=== PATIENT | female | born 1945 | race Hispanic/Latino ===

== ENCOUNTER → 2017-04-30 | Outpatient (CLI) | payer OTHER ==
[~2017-04-30] MED LIST: ALEN70TA47 PO; LISI1TAB11 PO; METF500T6 PO; METO100T14 PO; METO10TA3 PO; OMEP40CA37 PO; PRAV40TA3 PO
== END | disposition home or self-care (01) ==
LOC: RAH 13:21
PROVIDERS: ATTEND Internal Medicine
DX: R05 Cough (principal); M40.294 Other kyphosis, thoracic region
CPT/HCPCS: 71046

== ENCOUNTER 2018-04-18 02:38 | Observation (INO) | payer OTHER ==
[~2018-04-18] VITALS: Ht 170.2 cm; Wt 79.6 kg
[~2018-04-18 02:38] MED LIST changes: +ALEN70TA10 PO; -ALEN70TA47 PO; +METF-444 PO; -METF500T6 PO
[2018-04-18] MEDS ORDERED: SODIUM CHLORIDE 0.9% 1000ML 1,000 ML IV ONE ×2 (02:59→05:07)
[2018-04-18] MEDS ORDERED: ACETAMINOPHEN EXTRA STRENGTH 500 MG TABLET ONE (02:59)
[2018-04-18] MEDS ORDERED: ONDANSETRON HCL 4 MG/2 ML VIAL ONE (02:59)
[2018-04-18] MEDS ORDERED: FAMOTIDINE/PF 20 MG/2 ML VIAL IV ONE (03:00)
[2018-04-18 03:17] LABS: EOSINOPHILS % (AUTO) 0.8 % (0.0-8.0); HEMATOCRIT 37.2 % (36-48); LYMPHOCYTES % (AUTO) 17.5 % (21.0-51.0); MEAN CORPUSCULAR HEMOGLOBIN 28.3 pg (27.0-33.0); MEAN CORPUSCULAR HGB CONC 33.2 g/dL (32.0-36.0); MONOCYTES % (AUTO) 3.7 % (3.0-13.0); PLATELET COUNT (AUTO) 189 K/uL (130-400); RED BLOOD CELL COUNT(AUTO) 4.37 MIL/uL (4.00-5.50); RED CELL DISTRIBUTION WIDTH 14.3 % (11.0-15.5); WHITE BLOOD COUNT (AUTO) 10.5 K/uL (4.8-10.8)
[2018-04-18 03:33] LABS: CREATININE 1.1 mg/dL (0.5-1.5); INR 0.94 (0.85-1.15); PARTIAL THROMBOPLASTIN TIME 24.1 SEC (26.3-35.5); POTASSIUM 4.3 mmol/L (3.5-5.1); PROTHROMBIN TIME 9.9 SEC (9.6-11.6)
[2018-04-18 03:42] LABS: ALBUMIN 3.6 g/dL (3.5-5.0); BILIRUBIN,TOTAL 1.3 mg/dL (0.2-1.0); TOTAL PROTEIN, SERUM 8.5 g/dL (6.0-8.3)
[2018-04-18 04:04] LABS: APPEARANCE,URINE Clear (CLEAR); BILIRUBIN,URINE Negative (NEGATIVE); COLOR,URINE Yellow (YELLOW); GLUCOSE, URINE (UA) Negative (NEGATIVE); KETONES,URINE Negative (NEGATIVE); LEUKOCYTE ESTERASE ,URINE Trace (NEGATIVE); NITRATE,URINE Negative (NEGATIVE); OCCULT BLOOD,URINE Trace (NEGATIVE); PROTEIN,URINE POS 2+ (NEGATIVE)
[2018-04-18 04:14] LABS: BACTERIA,URINE Few /HPF (None Seen); RBC,URINE 0-1 /HPF (0-1)
[2018-04-18] MEDS ORDERED: AZITHROMYCIN 500MG+NS 250ML 250 ML IV ONE (05:08)
[2018-04-18] MEDS ORDERED: CEFTRIAXONE SODIUM 1 GM ONE (05:08)
[2018-04-18] MEDS: SODIUM CHLORIDE 0.9% 1000ML 1,000 ML IV SCH ×2 (05:27→15:27)
[2018-04-18] MEDS ORDERED: ACETAMINOPHEN 325 MG TAB PO PRN ×2 (05:30)
[2018-04-18] MEDS ORDERED: GUAIFENESIN-CODEINE 5 ML SYRUP PO PRN (05:30)
[2018-04-18] MEDS ORDERED: ONDANSETRON HCL 4 MG/2 ML VIAL IV PRN (05:30)
[2018-04-18] MEDS ORDERED: IPRATROPIUM/ALBUTEROL SULFATE 3 ML SOLUTION IH ONE (05:40)
[2018-04-18] MEDS: IPRATROPIUM/ALBUTEROL SULFATE 3 ML SOLUTION IH SCH ×4 (05:46→23:37)
[2018-04-18] MEDS: METOCLOPRAMIDE 10 MG TABLET PO SCH ×3 (07:30→17:31)
[2018-04-18] MEDS ORDERED: INSULIN HUMULIN R 100 UNIT/ML 3ML ONE (07:59)
[2018-04-18] MEDS ORDERED: FAMOTIDINE/PF 20 MG/2 ML VIAL IV SCH (09:00)
[2018-04-18 09:29] VITALS: BP 116/58
--- NOTE | 2018-04-18 09:30 | NUR ---
Admitted from the ER with c/o high fever, diagnosed with pneumonia and UTI. Currently denies any problems. Addendum: 04/18/18 at 1048 by SERGEY MATIAS RN RN Amended: Links added.
[2018-04-18] MEDS: HYDROCHLOROTHIAZIDE 25 MG TABLET PO SCH (09:50)
[2018-04-18] MEDS: LISINOPRIL 20 MG TABLET PO SCH (09:51)
[2018-04-18] MEDS: PANTOPRAZOLE SODIUM 40 MG TABLET.DR PO SCH (09:51)
[2018-04-18] MEDS: METOPROLOL TARTRATE 50 MG TAB PO SCH (09:51)
[2018-04-18 12:00] VITALS: BP 121/61
[2018-04-18 16:00] VITALS: BP 135/90
[2018-04-18] MEDS ORDERED: DEXTROSE 50%-WATER 50 ML DISP.SYRIN IV PRN (16:45)
[2018-04-18] MEDS ORDERED: GLUCAGON 1MG KIT 1 MG ML IM PRN (16:45)
[2018-04-18 19:15] VITALS: BP 154/79
[2018-04-18] MEDS: INSULIN HUMULIN R 100 UNIT/ML 3ML SQ SCH (20:38)
[2018-04-18] MEDS ORDERED: ***HM***Pravastatin Sodium 40 MG PO SCH (21:00)
[2018-04-18 23:10] VITALS: BP 138/57
[2018-04-19] MEDS: SODIUM CHLORIDE 0.9% 1000ML 1,000 ML IV SCH ×2 (01:13→12:21)
[2018-04-19 03:20] VITALS: BP 155/71
[2018-04-19] MEDS ORDERED: CEFTRIAXONE SODIUM 1 GM IV SCH (05:00)
[2018-04-19] MEDS ORDERED: AZITHROMYCIN 500MG+NS 250ML 250 ML IV SCH (05:30)
[2018-04-19] MEDS: IPRATROPIUM/ALBUTEROL SULFATE 3 ML SOLUTION IH SCH ×3 (06:12→18:41)
[2018-04-19] MEDS: INSULIN HUMULIN R 100 UNIT/ML 3ML SQ SCH ×3 (06:12→16:30)
[2018-04-19] MEDS: METOCLOPRAMIDE 10 MG TABLET PO SCH ×3 (07:04→17:09)
[2018-04-19 08:39] VITALS: BP 138/62
[2018-04-19] MEDS: HYDROCHLOROTHIAZIDE 25 MG TABLET PO SCH (10:09)
[2018-04-19] MEDS: PANTOPRAZOLE SODIUM 40 MG TABLET.DR PO SCH (10:10)
[2018-04-19] MEDS: METOPROLOL TARTRATE 50 MG TAB PO SCH (10:10)
[2018-04-19] MEDS: LISINOPRIL 20 MG TABLET PO SCH (10:10)
[2018-04-19 12:24] VITALS: BP 151/84
[2018-04-19 16:43] VITALS: BP 149/73
--- NOTE | 2018-04-19 17:41 | NUR ---
D/C PLAN CM spoke to pt regarding d/c planning. pt lives with spouse. Pt has provider 2.5 hrs/day. Denies having any home health or dme. plan to home. No needs verbalized or identified. CM to f/u Addendum: 04/19/18 at 1742 by FRANNIE REYNOLDS CM Amended: Links added.
[2018-04-19] MEDS ORDERED: LEVO500T2 PO (18:41)
== END 2018-04-19 19:55 | disposition home or self-care (01) ==
LOC: EDH 02:38 → EDHIP 05:10 → 4CH 08:44
PROVIDERS: ADMIT Internal Medicine; ATTEND Internal Medicine
DX: J18.9 Pneumonia, unspecified organism (principal); I10 Essential (primary) hypertension; R11.2 Nausea with vomiting, unspecified; E11.9 Type 2 diabetes mellitus without complications; Z90.49 Acquired absence of other specified parts of digestive tract; Z98.42 Cataract extraction status, left eye; Z82.0 Family history of epilepsy and other diseases of the nervous system; Z82.49 Family history of ischemic heart disease and other diseases of the circulatory system; Z82.5 Family history of asthma and other chronic lower respiratory diseases; Z83.3 Family history of diabetes mellitus; Z79.01 Long term (current) use of anticoagulants; Z79.899 Other long term (current) drug therapy
CPT/HCPCS: 36415; 71045; 74176; 80053; 81001; 82550; 82948 ×7; 83605 ×3; 84484; 85025; 85610; 85730; 87040; 87077; 87088; 87186; 87804 ×2; 93005; 94640 ×7; 94664; 96361; 96365; 96375; 99284; G0378 ×39; J0456 ×2; J0696 ×2; J1815; J2405; J3490; J7030 ×2

== ENCOUNTER 2018-07-01 12:10 | Observation (INO) | payer OTHER, MEDICARE ==
[~2018-07-01] VITALS: Ht 170.2 cm; Wt 76.7 kg
[~2018-07-01 12:10] MED LIST changes: +LEVO500T2 PO
[2018-07-01 12:56] LABS: BASOPHILS % (AUTO) 0.7 % (0.0-5.0); EOSINOPHILS % (AUTO) 3.2 % (0.0-8.0); LYMPHOCYTES % (AUTO) 37.2 % (21.0-51.0); MEAN CORPUSCULAR HGB CONC 34.2 g/dL (32.0-36.0); MEAN CORPUSCULAR VOLUME 84.8 fL (79-99); MONOCYTES % (AUTO) 8.2 % (3.0-13.0); NEUTROPHILS % (AUTO) 50.7 % (40.0-77.0); PLATELET COUNT (AUTO) 195 K/uL (130-400); RED BLOOD CELL COUNT(AUTO) 4.12 MIL/uL (4.00-5.50); RED CELL DISTRIBUTION WIDTH 14.4 % (11.0-15.5)
[2018-07-01 13:04] LABS: CREATININE 1.1 mg/dL (0.5-1.5); POTASSIUM 3.6 mmol/L (3.5-5.1)
[2018-07-01 13:09] LABS: INR 0.93 (0.85-1.15); PROTHROMBIN TIME 9.8 SEC (9.6-11.6)
[2018-07-01 13:10] LABS: ALBUMIN 3.6 g/dL (3.5-5.0); BILIRUBIN,TOTAL 1.6 mg/dL (0.2-1.0); TOTAL PROTEIN, SERUM 8.2 g/dL (6.0-8.3)
[2018-07-01 13:30] LABS: APPEARANCE,URINE Clear (CLEAR); BILIRUBIN,URINE Negative (NEGATIVE); COLOR,URINE Yellow (YELLOW); GLUCOSE, URINE (UA) Negative (NEGATIVE); KETONES,URINE Negative (NEGATIVE); LEUKOCYTE ESTERASE ,URINE Trace (NEGATIVE); NITRATE,URINE Negative (NEGATIVE); OCCULT BLOOD,URINE Trace (NEGATIVE); PROTEIN,URINE Negative (NEGATIVE)
[2018-07-01 13:32] LABS: BACTERIA,URINE Rare /HPF (None Seen); RBC,URINE 0-1 /HPF (0-1); SQUAMOUS EPITHELIAL CELL,UR Rare /HPF (0-2)
[2018-07-01] MEDS ORDERED: ONDANSETRON HCL 4 MG/2 ML VIAL IV PRN (15:00)
[2018-07-01] MEDS ORDERED: ACETAMINOPHEN 325 MG TAB PO PRN ×2 (15:00)
[2018-07-01] MEDS ORDERED: HYDRALAZINE HCL 20 MG/ML VIAL IV PRN (15:00)
[2018-07-01] MEDS ORDERED: LACTULOSE 20 GM/30 ML UDCUP PO PRN (15:00)
[2018-07-01] MEDS ORDERED: MEPERIDINE-PF 25 MG/ML SYG IV PRN (15:00)
[2018-07-01] MEDS ORDERED: ZOSYN 3.375GM+NS 50ML 50 ML IV ONE (20:37)
[2018-07-01] MEDS ORDERED: FAMOTIDINE/PF 20 MG/2 ML VIAL IV ONE (20:38)
[2018-07-01] MEDS: ZOSYN 3.375GM+NS 50ML 50 ML IV SCH (21:00)
[2018-07-02] VITALS (17 sets, daily range): BP systolic 111–165; BP diastolic 44–76
[2018-07-02] MEDS: SODIUM CHLORIDE 0.9% 1000ML 1,000 ML IV SCH ×3 (02:20→22:04)
[2018-07-02] MEDS: ZOSYN 3.375GM+NS 50ML 50 ML IV SCH ×4 (04:50→22:04)
[2018-07-02] MEDS: FAMOTIDINE/PF 20 MG/2 ML VIAL IV SCH (09:04)
[2018-07-02] MEDS: INSULIN HUMULIN R 100 UNIT/ML 3ML SQ SCH ×3 (12:00→22:04)
--- NOTE | 2018-07-02 15:51 | NUR ---
RD Notification Patient NPO at time of screen. Patient with Choledocolithiasis. When medically feasible, Rec to advance diet to Heart Healthy, Low Fat diet as tolerated. Patient LBM 07/01/18. Patient monitored labs: BN 27, GFR 52, Glu 94, T. Bili 1.6, AST 85, ALT 203, Alk 318, Lipase 291. RD to continue to monitor. Please notify RD as additional nutritional concerns arise. Thank you. Addendum: 07/02/18 at [address] RD Amended: Links added.
--- NOTE | 2018-07-02 17:00 | NUR ---
LUKAS Met w pt and sposue at bedside- aaox3, indp of adls, no dme, no hh; dcp home Addendum: 07/02/18 at 1831 by SHIRAZ MARINELLI RN CM Amended: Links added.
[2018-07-02] MEDS ORDERED: SUCCINYLCHOLINE 200MG/10ML SYR ONE (17:36)
[2018-07-02] MEDS ORDERED: PROPOFOL 10 MG/ML 20ML VIAL IV ONE ×2 (17:37→18:33)
--- NOTE | 2018-07-02 18:10 | NUR ---
ERCP PT TRANSPORTED, VIA BED, AAOX3, ACCOMPANIED BY FAMILY [facility]ERS TO GI FOR UPCOMING ERCP
[2018-07-02] MEDS ORDERED: HYDRALAZINE HCL 20 MG/ML VIAL ONE (18:34)
[2018-07-02] MEDS ORDERED: IOHEXOL-350 50ML VIAL IV ONE (18:34)
[2018-07-02] MEDS ORDERED: INDOMETHACIN 50 MG SUPP.RECT RC SCH (19:00)
[2018-07-03] VITALS: BP 121/58
[2018-07-03 04:00] VITALS: BP 147/75
[2018-07-03] MEDS: ZOSYN 3.375GM+NS 50ML 50 ML IV SCH ×2 (04:41→13:44)
[2018-07-03] MEDS: SODIUM CHLORIDE 0.9% 1000ML 1,000 ML IV SCH (04:41)
[2018-07-03] MEDS: INSULIN HUMULIN R 100 UNIT/ML 3ML SQ SCH ×4 (06:00→16:30)
[2018-07-03 06:25] LABS: HEMATOCRIT 31.6 % (36-48); MEAN CORPUSCULAR VOLUME 85.4 fL (79-99); PLATELET COUNT (AUTO) 162 K/uL (130-400); RED CELL DISTRIBUTION WIDTH 14.1 % (11.0-15.5); WHITE BLOOD COUNT (AUTO) 5.3 K/uL (4.8-10.8)
[2018-07-03 06:41] LABS: ALBUMIN 2.9 g/dL (3.5-5.0); BILIRUBIN,TOTAL 1.1 mg/dL (0.2-1.0); CREATININE 0.8 mg/dL (0.5-1.5); POTASSIUM 3.4 mmol/L (3.5-5.1); TOTAL PROTEIN, SERUM 7.1 g/dL (6.0-8.3)
[2018-07-03 07:03] LABS: AMYLASE 153 U/L (25-115); LIPASE 668 U/L (114-286)
[2018-07-03 08:00] VITALS: BP 141/67
[2018-07-03] MEDS ORDERED: TRAM50TA4 PO (08:51)
[2018-07-03] MEDS: FAMOTIDINE/PF 20 MG/2 ML VIAL IV SCH (09:51)
[2018-07-03 11:41] VITALS: BP 161/69
[2018-07-03 16:35] VITALS: BP 168/86
[2018-07-03 17:50] VITALS: BP 124/56
--- NOTE | 2018-07-03 18:59 | NUR ---
DR HIGGINBOTHAM AND DR MOORE ARE OK TO TRANSFER THE PT ONCE EXCEPTED
== END 2018-07-03 18:25 | disposition home or self-care (01) ==
LOC: EDH 12:10 → EDHIP 14:48 → INTOOBSV 14:48 → OBSVTOIN 14:48 → 3CH 07-02 01:53
PROVIDERS: ADMIT Internal Medicine; ATTEND Internal Medicine
DX: K80.50 Calculus of bile duct without cholangitis or cholecystitis without obstruction (principal); R74.0 Nonspecific elevation of levels of transaminase and lactic acid dehydrogenase [LDH]; C18.9 Malignant neoplasm of colon, unspecified; D64.9 Anemia, unspecified; E11.9 Type 2 diabetes mellitus without complications; E78.2 Mixed hyperlipidemia; R11.2 Nausea with vomiting, unspecified; K83.8 Other specified diseases of biliary tract; I10 Essential (primary) hypertension; K27.9 Peptic ulcer, site unspecified, unspecified as acute or chronic, without hemorrhage or perforation; K29.70 Gastritis, unspecified, without bleeding; K55.20 Angiodysplasia of colon without hemorrhage; K85.90 Acute pancreatitis without necrosis or infection, unspecified; Z98.41 Cataract extraction status, right eye; Z98.42 Cataract extraction status, left eye; Z90.49 Acquired absence of other specified parts of digestive tract; Z82.0 Family history of epilepsy and other diseases of the nervous system; Z82.49 Family history of ischemic heart disease and other diseases of the circulatory system; Z83.3 Family history of diabetes mellitus
CPT/HCPCS: 36415 ×2; 43262; 43264; 74330; 76705; 80053 ×2; 81001; 82150; 82550; 82948 ×8; 83690 ×2; 84484; 85025; 85027; 85610; 85730; 93005; 96361; 96365; 96366 ×2; 96375 ×2; 96376; 99284; C1769; C1773; G0378 ×51; J0330; J0360 ×2; J2543 ×6; J2704 ×2; J3490 ×3; Q9967

== ENCOUNTER → 2018-10-28 | Outpatient (CLI) | payer OTHER ==
[~2018-10-28] MED LIST changes: -LISI1TAB11 PO; +LISI1TAB28 PO; +TRAM50TA4 PO
== END | disposition home or self-care (01) ==
LOC: RAH 08:39
PROVIDERS: ATTEND Internal Medicine
DX: Z12.31 Encounter for screening mammogram for malignant neoplasm of breast (principal)
CPT/HCPCS: 77067

== ENCOUNTER → 2018-10-30 | Outpatient (CLI) | payer OTHER | END | disposition home or self-care (01) | LOC: RAH 10:00 | PROVIDERS: ATTEND Internal Medicine Gastroenterology | DX: K76.0 Fatty (change of) liver, not elsewhere classified (principal); N28.1 Cyst of kidney, acquired; K83.8 Other specified diseases of biliary tract; Z90.710 Acquired absence of both cervix and uterus | CPT/HCPCS: 76700 ==

== ENCOUNTER → 2020-06-12 | Outpatient (CLI) | payer OTHER ==
[~2020-06-12] MED LIST changes: -ALEN70TA10 PO; +ALEN70TA80 PO; -LISI1TAB28 PO; +LISI1TAB51 PO; +OMEP40CA13 PO; -OMEP40CA37 PO
== END | disposition home or self-care (01) ==
LOC: RAH 14:50
PROVIDERS: ATTEND Internal Medicine
DX: Z12.31 Encounter for screening mammogram for malignant neoplasm of breast (principal)
CPT/HCPCS: 77067

== ENCOUNTER → 2020-07-24 | Outpatient (CLI) | payer OTHER ==
[~2020-07-24] MED LIST changes: -OMEP40CA13 PO; +OMEP40CA21 PO
== END | disposition home or self-care (01) ==
LOC: RAH 08:30
PROVIDERS: ATTEND Internal Medicine
DX: M25.511 Pain in right shoulder (principal)
CPT/HCPCS: 73030; 73060

== ENCOUNTER → 2022-05-03 | Outpatient (CLI) | payer OTHER | END | disposition home or self-care (01) | LOC: RAH 10:03 | PROVIDERS: ATTEND Internal Medicine | DX: I65.23 Occlusion and stenosis of bilateral carotid arteries (principal) | CPT/HCPCS: 93880 ==

== ENCOUNTER 2022-11-25 13:35 | Emergency (ER) | payer OTHER ==
[~2022-11-25] VITALS: Ht 170.2 cm; Wt 83.9 kg
[2022-11-25 13:49] VITALS: BP 187/92; PULSE 72; RESP 16; O2SAT 98
[2022-11-25 14:20] LABS: SARS-CoV-2, RNA, NAAT NEGATIVE SARS CoV-2 (NEGATIVE)
[2022-11-25 14:25] LABS: INFLUENZA TYPE A Negative For Type A (NEGATIVE)
[2022-11-25 14:30] LABS: INFLUENZA TYPE B Positive For Type B (NEGATIVE)
[2022-11-25] MEDS ORDERED: OSELTAMIVIR PHOSPHATE 75 MG CAP PO ONE (15:30)
[2022-11-25] MEDS ORDERED: BENZ-39 PO (16:08)
[2022-11-25] MEDS ORDERED: OSEL75 PO (16:08)
== END 2022-11-25 16:36 | disposition home or self-care (01) ==
LOC: EDH 13:35
DX: J10.1 Influenza due to other identified influenza virus with other respiratory manifestations (principal); R05.9 Cough, unspecified; E11.9 Type 2 diabetes mellitus without complications; E78.00 Pure hypercholesterolemia, unspecified; I10 Essential (primary) hypertension; K21.9 Gastro-esophageal reflux disease without esophagitis; Z79.84 Long term (current) use of oral hypoglycemic drugs; Z90.49 Acquired absence of other specified parts of digestive tract; Z20.822 Contact with and (suspected) exposure to COVID-19
CPT/HCPCS: 99284; 71045; 87635; 87804 ×2; C9803

== ENCOUNTER → 2023-01-14 | Outpatient (CLI) | payer OTHER ==
[~2023-01-14] MED LIST changes: +BENZ-39 PO; +OSEL75 PO
== END | disposition home or self-care (01) ==
LOC: RAH 11:26
PROVIDERS: ATTEND Internal Medicine
DX: Z12.31 Encounter for screening mammogram for malignant neoplasm of breast (principal)
CPT/HCPCS: 77067

== ENCOUNTER → 2024-06-15 | Outpatient (CLI) | payer OTHER, MEDICARE ==
[~2024-06-15] MED LIST changes: -ALEN70TA80 PO; +ATOR10 PO; -BENZ-39 PO; +GLIM1TAB56 PO; -LEVO500T2 PO; +LINA5TAB PO; -METO10TA3 PO; +METO5TAB2 PO; +OMEP20CA12 PO; -OMEP40CA21 PO; -PRAV40TA3 PO; -TRAM50TA4 PO
[2024-06-15] MEDS: REGADENOSON 0.4 MG/5 ML PF SYG IVP ONE (12:21)
== END | disposition home or self-care (01) ==
LOC: SHCH 08:22
PROVIDERS: ATTEND Internal Medicine Cardiovascular Disease
DX: R07.9 Chest pain, unspecified (principal); R06.00 Dyspnea, unspecified
CPT/HCPCS: 78452; 93017; J2785; A9500 ×2

== ENCOUNTER 2024-07-13 06:50 | Day surgery (SDC) | payer OTHER, MEDICAID ==
[2024-07-09 12:16] LABS: BASOPHILS # (AUTO) 0.04 K/uL (0.00-0.20); BASOPHILS % (AUTO) 0.6 % (0.0-5.0); EOSINOPHILS # (AUTO) 0.17 K/uL (0.00-0.70); EOSINOPHILS % (AUTO) 2.5 % (0.0-8.0); HEMATOCRIT 37.9 % (36-48); IMMATURE GRANULOCYTE ABSOLUTE 0.02 K/uL (0-1); LYMPHOCYTES % (AUTO) 29.4 % (21.0-51.0); MEAN CORPUSCULAR HEMOGLOBIN 29.1 pg (27.0-33.0); MEAN CORPUSCULAR HGB CONC 31.9 g/dL (32.0-36.0); MEAN CORPUSCULAR VOLUME 91.1 fL (79-99); MONOCYTES # (AUTO) 0.4 K/uL (0.1-1.0); MONOCYTES % (AUTO) 6.3 % (3.0-13.0); NEUTROPHILS # (AUTO) 4.2 K/uL (1.8-7.7); NEUTROPHILS % (AUTO) 60.9 % (40.0-77.0); PLATELET COUNT (AUTO) 148 K/uL (130-400); RED BLOOD CELL COUNT(AUTO) 4.16 MIL/uL (4.00-5.50); RED CELL DISTRIBUTION WIDTH 13.2 % (11.0-15.5); WHITE BLOOD COUNT (AUTO) 6.9 K/uL (4.8-10.8)
[2024-07-09 12:24] LABS: INR 1.03 (0.85-1.15); PROTHROMBIN TIME 10.9 SEC (9.6-11.6)
[2024-07-09 12:25] LABS: PARTIAL THROMBOPLASTIN TIME 30.8 SEC (26.3-35.5)
[2024-07-09 12:26] VITALS: BP 174/77; PULSE 66; RESP 18; TEMP 97.2
[2024-07-09 12:35] LABS: CREATININE 1.1 mg/dL (0.5-1.0); POTASSIUM 3.9 mmol/L (3.5-5.1)
[2024-07-09 12:41] LABS: B-TYPE NATRIURETIC PEPTIDE 205 pg/mL (0-100)
[2024-07-09 12:46] LABS: APPEARANCE,URINE CLEAR (CLEAR); BILIRUBIN,URINE NEGATIVE (NEGATIVE); COLOR,URINE LIGHT-YELLOW (YELLOW); GLUCOSE, URINE (UA) NEGATIVE (NEGATIVE); KETONES,URINE NEGATIVE (NEGATIVE); LEUKOCYTE ESTERASE ,URINE 75 Leu/uL (NEGATIVE); NITRATE,URINE NEGATIVE (NEGATIVE); OCCULT BLOOD,URINE NEGATIVE (NEGATIVE); PH,URINE 5.5 (5.0-8.0); PROTEIN,URINE NEGATIVE (NEGATIVE); UROBILINOGEN,URINE 0.2 mg/dL (0.2-1.0)
[2024-07-09 12:51] LABS: ADD UA MICROSCOPIC YES
[2024-07-09 12:53] LABS: BACTERIA,URINE RARE /HPF (None Seen); MUCUS,URINE RARE LPF (None Seen); SQUAMOUS EPITHELIAL CELL,UR RARE /HPF (0-2); TRANSITIONAL EPI CELLS,URINE RARE /HPF (None Seen)
--- NOTE | 2024-07-09 14:35 | HMCIMG ---
CHEST 1VW HISTORY: Preop COMPARISON: 04/05/2024 FINDINGS: A frontal projection of the chest was obtained. No acute pulmonary infiltrates is seen. The heart is borderline enlarged. Degenerative changes are seen. Aortic calcifications are seen. IMPRESSION: 1. No acute pulmonary infiltrate is seen.
--- NOTE | 2024-07-09 15:18 | EKG ---
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
[~2024-07-13] VITALS: Ht 170.2 cm; Wt 79.1 kg
[2024-07-13] VITALS (16 sets, daily range): BP systolic 110–227; BP diastolic 47–92; PULSE 61–72; RESP 14–20; TEMP 96.8–97.2
[~2024-07-13 06:50] MED LIST changes: +ASPI-449 PO; +CYAN-106 PO; -METF-444 PO; +METF-446 PO; +METO-409 PO; -METO100T14 PO; -OSEL75 PO; +iron PO
[2024-07-13] MEDS: 0.9%NACL 1000ML 1,000 ML IV SCH ×2 (07:24→13:48)
[2024-07-13] MEDS ORDERED: IOHEXOL 350 MG/ML 100ML INFUS..BTL IV ONE (09:16)
[2024-07-13] MEDS ORDERED: LIDOCAINE HCL 400MG/20ML VIAL ONE (09:16)
[2024-07-13] MEDS ORDERED: niCARDIpine 25MG INJ IV ONE (09:16)
[2024-07-13] MEDS ORDERED: HEParin-NS 1,000 UNIT/500 ML 1,000 ML IV ONE (09:17)
[2024-07-13] MEDS ORDERED: HEParin 10,000 UNIT/10ML (1,000 UNIT/ML) VIAL ONE (09:17)
[2024-07-13] MEDS ORDERED: NITROGLYCERIN 50MG VIAL ONE (09:17)
[2024-07-13] MEDS ORDERED: FENTanyl CITRate PF 50 MCG/1 ML 2ML VIAL ONE ×2 (09:29→11:24)
[2024-07-13] MEDS ORDERED: MIDAZOLAM HCL 1 MG/ML 2ML VIAL ONE ×2 (09:29→11:01)
[2024-07-13] MEDS ORDERED: hydrALAZine 20MG/ML VIAL ONE ×2 (09:40→11:50)
[2024-07-13] MEDS ORDERED: ATROPINE 1MG SYG IVP ONE (10:31)
[2024-07-13] MEDS ORDERED: cloPIDOgrel 300MG TAB ONE (10:32)
[2024-07-13] MEDS ORDERED: ASPIRIN 325MG EC TAB PO ONE (10:32)
[2024-07-13] MEDS ORDERED: HEParin-NS 1,000 UNIT/500 ML 500 ML IV ONE (10:51)
[2024-07-13] MEDS ORDERED: GLUCAGON 1MG KIT 1 MG ML IM PRN (12:30)
[2024-07-13] MEDS ORDERED: DEXTROSE 50%-WATER 50 ML DISP.SYRIN IV PRN (12:30)
--- NOTE | 2024-07-13 12:56 | PRN ---
PROCEDURE NOTE Indications: Chest pain, CCS III symptoms Abnormal Lexiscan stress test done on 06/15/2024 (moderate size, moderate intensity, partially reversible perfusion defect seen in the mid/apical inferior and inferolateral wall). Elevated cardiac enzymes on 03/2024 HTN HLD DM2 CKD stage 3A Procedures: Coronary angiogram, femoral angiogram, PCI with balloon angio plasty, balloon lithotripsy, and SHANEL placement in the mid RCA, IVUS assessment of the RCA Introduction: After informed written consent was obtained, the patient was brought to the Catheterization Lab in the usual fasting state. Following sterile prep and drape, a time out was performed, then moderate sedation was administered, 2mg of Versed and 75mcg of Fentanyl, then 1% Lidocaine was infiltrated into the right femoral groin. Using a Modified Seldinger technique, a 6Fr Sheath was inserted into the right common femoral artery. While under fluoroscopic guidance, diagnostic coronary catheters were advanced over a wire into the central circulation where they were aspirated, flushed and placed to pressure monitoring, once the wire was removed. Coronary Angio: The left and right coronary arteries were engaged with appropriate catheters and angiography was performed under continuous pressure monitoring. Cardiac Findings: Right dominant system LM: Large caliber vessel with mild luminal irregularities. The vessel bifurcates into the LAD and LCX. LAD: Large caliber vessel with 80% stenosis in the proximal LAD. The rest of the vessel has mild luminal irregularities. MECHE 3 blood flow distally. Diagonal 1: Medium caliber vessel with mild luminal irregularities Diagonal 2: Small caliber vessel with mild luminal irregularities LCx: Large caliber vessel with 20% stenosis in the mid LCX. The rest of the vessel has mild luminal irregularities Ramus: Small caliber vessel with mild luminal irregularities. OM1: Small caliber vessel with mild luminal irregularities. RCA: Large caliber vessel with 40% stenosis in the proximal RCA and 95% stenosis in the mid RCA. The rest of the vessel has mild luminal irregularities RPDA: Medium caliber vessel with mild luminal irregularities RPLV: Medium caliber vessel with mild luminal irregularities Medications given: Versed 3mg, Fentanyl 75mcg, Heparin 75u/kg x 1 dose, clopidogrel 600 mg x 1 dose, aspirin 325 mg x 1 dose, hydralazine IV, nitroglycerin IV Coronary Intervention: Guide catheter: JR4 Guidewire: 0.014 runthrough, 0.014 BMW After reviewing the above-mentioned findings were decision was made to intervene on the RCA. The patient was administered heparin 75 units/kg x1 dose, clopidogrel 600 mg x 1 dose, and aspirin 325 mg x 1 dose. We then advanced a JR4 guide catheter into the ostium of the RCA and a 0.014 runthrough across the areas stenosis of the distal RPDA. We then advanced a 2nd wire, 0.014 BMW guidewire into the distal RCA and advanced a GuideLiner into the mid RCA. We then performed balloon angioplasty (2.0 x 15 mm, 4.0 x 15 mm, 4.0 x 20 mm, N/C 4.5 x 15 mm), balloon lithotripsy (shockwave 4.0 x 12 mm) and SHANEL placement (Medtronic Ondina [place] 4.5 x 30 mm and 4.5 x 15 mm) in the proximal mid and mid RCA. The stent was assessed via IVUS which reveal poor expansion in the mid segment of the stent. The stents were then post dilated using an NC 4.5 x 20 mm balloon achieving optimal results. Repeat angiography revealed widely patent stents in the proximal and mid RCA, and MECHE three blood flow distally. The two wires, GuideLiner, and JR4 guide catheter were then removed. Complications: None Conscious Sedation Monitoring: Under my direct order and supervision, medication for moderate conscious sedation was administered by the nursing staff and the patients level of consciousness and physiological status was monitored by an independent trained nurse. Closure of Access Site: After the case completed the sheath was pulled and a 6Fr Angioseal was deployed in the right common femoral artery without complication. Conclusion: 1. CAD, 95% stenosis in the mid RCA status post successful treatment with balloon angioplasty, balloon lithotripsy, and the as placement (Medtronic ondina [place] 4.5 x 30 mm and 4.5 x 15 mm) in the proximal and mid RCA. 2. Residual CAD, 80% stenosis in the proximal LAD 3. Chest pain, CCS III symptoms 4. Abnormal Lexiscan stress test done on 06/15/2024 (moderate size, moderate intensity, partially reversible perfusion defect seen in the mid/apical inferior and inferolateral wall). 5. Elevated cardiac enzymes on 03/2024 6. HTN 7. HLD 8. DM2 9. CKD stage 3A Recommendation: 1. Continue goal-directed medical therapy. 2. Start clopidogrel 75 mg daily. Continue aspirin 81 mg daily. The patient will remain on diaphragm minimum of six months and optimally one year. 3. Groin precautions 4. 4 hours of bed rest. 5. Start NS at 100 mL/hour x3 hours. 6. We will bring the patient back within the next two weeks to address the residual CAD in the LAD. 7. Please have the patient follow up with Dr. Latham in four weeks. ROMAN LATHAM MD July 13, 2024 12:55
--- NOTE | 2024-07-13 14:08 | NUR ---
NOTED DRESSING TO RIGHT GROIN SOAKED IN BLOOD. DRESSING REMOVED NEW D-STAT APPLIED MANUAL PRESSURE HELD X 15 MINUTES BY KEVYN PINZON. SKIN AROUND RIGHT GROIN SOFT
== END 2024-07-13 17:00 | disposition home or self-care (01) ==
LOC: DAH 06:50
PROVIDERS: ATTEND Internal Medicine Cardiovascular Disease
DX: R94.39 Abnormal result of other cardiovascular function study (principal); I25.118 Atherosclerotic heart disease of native coronary artery with other forms of angina pectoris; E11.22 Type 2 diabetes mellitus with diabetic chronic kidney disease; I12.9 Hypertensive chronic kidney disease with stage 1 through stage 4 chronic kidney disease, or unspecified chronic kidney disease; N18.31 Chronic kidney disease, stage 3a; R07.9 Chest pain, unspecified; R79.89 Other specified abnormal findings of blood chemistry; E78.5 Hyperlipidemia, unspecified; M19.90 Unspecified osteoarthritis, unspecified site; K21.9 Gastro-esophageal reflux disease without esophagitis; Z79.899 Other long term (current) drug therapy; Z79.82 Long term (current) use of aspirin; Z79.84 Long term (current) use of oral hypoglycemic drugs; Z86.2 Personal history of diseases of the blood and blood-forming organs and certain disorders involving the immune mechanism
CPT/HCPCS: 80048; 83880; 85025; 85610; 85730; 87086 ×2; 87186; 81001; 36415; 71045; 93005; 93454; 92978; 92972; 85347 ×2; 82948; C9600; Q9965 ×2; C1887 ×2; C1894 ×2; C1725 ×5; C1760; C1874 ×2; C1769 ×2; C1761; C1753; J3010 ×2; J3490 ×3; J7030; J0360 ×2; J1644 ×3; J2250 ×2; Q9967; A4215; A4222; A4221; A4663; A4216; A4606; A4223 ×3; 99156; 99157; J0461